=== PATIENT | female | born 2000 | race Caucasian/White ===

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

== ENCOUNTER 2019-07-07 00:53 | Inpatient (IN) | payer BC, OTHER ==
--- NOTE | 2019-07-07 01:22 | ED ---
Substance Abuse/Use - HPI Summary HPI Summary: This patient is a 19 year old F presenting to [facility] by EMS with a chief complaint of drug overdose since 0000 07/07/19. Symptoms aggravated by nothing. Symptoms alleviated by nothing. Patient reports she has been down for a while and overdosed on a prescription medication, 20 tabs of duloxetine, per triage, given at [facility]. Pt took pills alone around 0000 and reports to have been drinking slightly tonight. 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 Pt reports her friend from home who is in [place] called the EMS. - History Of Current Complaint Stated Complaint: OVERDOSE PER EMS Hx Obtained From: Patient Ingestion History: Type/Name Of Drug - duloxetine, Amount Ingested - 20 tabs Character: Depressed Aggravating Factor(s): Nothing Alleviating Factor(s): Nothing - Allergies/Home Medications Allergies/Adverse Reactions: Allergies Allergy/AdvReac Type Severity Reaction Status Date / Time No Known Allergies Allergy Verified 10/11/16 07:17 Home Medications: Home Medications DULoxetine DR CAP* [Cymbalta CAP*] 60 mg PO DAILY 07/07/19 [History Confirmed ] Iron 1 tab PO DAILY 07/07/19 [History Confirmed 07/07/19] Norethindrone-Ethinyl Estrad [Aranelle 28 Tablet] 1 tab PO DAILY 07/07/19 [ History Confirmed 07/07/19] PMH/Surg Hx/FS Hx/Imm Hx Endocrine/Hematology History: Denies: Hx Diabetes Cardiovascular History: Denies: Hx Hypertension - Surgical History Surgery Procedure, Year, and Place: none - Family History Known Family History: Positive: Diabetes - father - Social History Alcohol Use: None Hx Substance Use: No Substance Use Type: Reports: None Hx Tobacco Use: No Smoking Status (MU): Never Smoked Tobacco Review of Systems Negative: Fever Positive: Other - drug overdose All Other Systems Reviewed And Are Negative: Yes Physical Exam - Summary Physical Exam Summary: Appearance: Well-appearing, Well-nourished, lying in bed comfortably, Appears depressed and tearful Skin: Warm, dry, no obvious rash Eyes: sclera anicteric, no conjunctival pallor ENT: mucous membranes moist, pharynx appears normal Neck: Supple, nontender Respiratory: Clear to auscultation, no signs of respiratory distress Cardiovascular: Normal S1, S2. No murmurs. Normal distal pulses in tibial and radial bilaterally. Abdomen: Soft, nontender, normal active bowel sounds present Musculoskeletal: Normal, Strength/ROM Intact Neurological: awake and alert and answering questions appropriately Psychiatric: affect is normal, does not appear anxious or depressed Triage Information Reviewed: Yes Vital Signs Reviewed: Yes Procedures - Sedation Patient Received Moderate/Deep Sedation with Procedure: No Diagnostics - Laboratory Result Diagrams: 07/07/19 01:15 07/07/19 01:15 Lab Statement: Any lab studies that have been ordered have been reviewed, and results considered in the medical decision making process. - EKG 0108 Cardiac Rate: NL - 95 BPM Summary of EKG Findings: NSR at 95 BPM, P waves, QRS complex, and T waves are within normal limits, T waves and intervals are normal, no ischemic changes. This is a normal EKG. Course/Dx - Course Course Of Treatment: This patient is a 19 year old F presenting to [facility] by EMS with a chief complaint of drug overdose since 0000 07/07/19. Patient reports she has been down for a while and overdosed on a prescription medication, 20 tabs of duloxetine, per triage, given at [facility]. Pt took pills alone around 0000 and reports to have been drinking slightly tonight. Physical Exam Findings shows no abnormalities except Appears depressed and tearful, awake and alert and answering questions appropriately. Test results with no significant abnormalities expect for RBC 5.32 H, MCV 73 L, MCH 24 L, MPV 7.2 L, Serum Alcohol 77 H. Urinalysis shows no abnormalities except for Ur Specific [place] 1.005 L, Urine Blood 2+ A, Ur Squamous Epith Cells Present A. In the ED course the patient was given 50 gm Charcoal/Sorbitol and 8 mg Ondansetron Hcl. The patient is a sign-out from Dr. Nelson Finney MD, to Dr. Christopher Sommer MD, at change of shift at 0700 on 07/07/2019, pending mental health evaluation. - Diagnoses Provider Diagnoses: Depression Discharge ED - Sign-Out/Discharge Documenting (check all that apply): Patient Departure - discharge - Discharge Plan Condition: Stable Disposition: [facility]YCHIATRIC FACILITY[place] [place] - Billing Disposition and Condition Condition: STABLE Disposition: Psychiatric Facility [facility] [place] - Attestation Statements Document Initiated by Scribe: Yes Documenting Scribe: Pita Preciado Provider For Whom Scribe is Documenting (Include Credential): Dr. Nelson Finney MD Scribe Attestation: I, Pita Preciado, scribed for Dr. Nelson Finney MD on 07/15/19 at 0020. Scribe Documentation Reviewed: Yes Provider Attestation: The documentation as recorded by the abbeyePita accurately reflects the service I personally performed and the decisions made by me, Dr. Nelson Finney MD Status of Scribe Document: Viewed
[2019-07-07 01:33] LABS: ABS Eosinophils 0.3 10^3/ul (0-0.6); ABS Monocytes 0.5 10^3/ul (0-0.8); ABS Neutrophils 2.9 10^3/ul (1.5-7.7); Eosinophil % 4.5 %; Hematocrit 39 % (35-47); Hemoglobin 12.8 g/dL (12.0-16.0); Lymphocyte % 44.1 %; Mean Corpuscular HGB Conc 33 g/dL (31-36); Mean Corpuscular Hemoglobin 24 pg (27-31); Mean Corpuscular Volume 73 fL (80-97); Mean Platelet Volume 7.2 fL (7.4-10.4); Platelet Count 329 10^3/uL (150-450); Red Blood Count 5.32 10^6 /uL (3.70-4.87); Red Cell Distribution Width 13 % (10-15); White Blood Count 6.7 10^3/uL (3.5-10.8)
[2019-07-07] MEDS ORDERED: Charcoal 50 GM/Sorbitol* 50 GM/240 ML BTL PO ONE (01:34)
[2019-07-07 01:38] LABS: Urine Appearance Clear; Urine Bacteria Absent (Absent); Urine Bilirubin Negative (Negative); Urine Blood 2+ (Negative); Urine Color Straw; Urine Glucose Negative (Negative); Urine Ketones Negative (Negative); Urine Nitrite Negative (Negative); Urine Protein Negative (Negative); Urine Red Blood Cell Trace(0-2/hpf) (Absent); Urine Specific Gravity 1.005 (1.010-1.030); Urine Squamous Epithelial Cell Present (Absent); Urine Urobilinogen Negative (Negative); Urine White Blood Cell Absent (Absent)
[2019-07-07 01:42] LABS: ALT 28 U/L (7-52); AST 32 U/L (13-39); Albumin 4.3 g/dL (3.2-5.2); Albumin/Globulin Ratio 1.8 (1-3); Alkaline Phosphatase 58 U/L (34-104); Anion Gap 7 mmol/L (2-11); BUN/Creatinine Ratio 10.3 (8-20); Blood Urea Nitrogen 8 mg/dL (6-24); CO2 Carbon Dioxide 25 mmol/L (22-32); Calcium 8.8 mg/dL (8.6-10.3); Chloride 107 mmol/L (101-111); EGFR African American 112.8 (>60); EGFR Non-African American 93.2 (>60); Globulin 2.4 g/dL (2-4); Glucose 92 mg/dL (70-100); Potassium 3.5 mmol/L (3.5-5.0); Sodium 139 mmol/L (135-145); Total Protein 6.7 g/dL (6.4-8.9)
[2019-07-07 01:46] LABS: Urine Benzodiazepine Screen None Detected (None Detect); Urine Opiates Screen None Detected (None Detect)
[2019-07-07 01:49] LABS: HCG Pregnancy < 0.60 mIU/mL
[2019-07-07 02:07] LABS: Acetaminophen < 15 mcg/mL; Alcohol 77 mg/dL (<10); Salicylate < 2.50 mg/dL (<30)
[2019-07-07 02:22] LABS: TSH (Thyroid Stimulating Horm) 5.45 mcIU/mL (0.34-5.60)
[2019-07-07] MEDS ORDERED: Ondansetron ODT TAB* 4 MG SL ONE (06:23)
[2019-07-07] MEDS ORDERED: Ondansetron INJ* 2 MG/ML VIAL IV ONE (06:23)
--- NOTE | 2019-07-07 07:16 | ED ---
Progress - Progress Note Progress Note: The patient is a sign-out from Dr. Nelson Finney MD, to Dr. Christopher Sommer MD, at change of shift at 0700 on 07/07/2019, pending mental health evaluation and disposition. 0820 - Ines Matt, mental health yard cleaner, reports Dr. Adair, psychiatry, has evaluated the patient and believes involuntary admission is appropriate, dx of depression Course/Dx - Course Course Of Treatment: The patient is a sign-out from Dr. Nelson Finney MD, to Dr. Christopher Sommer MD, at change of shift at 0700 on 07/07/2019, pending mental health evaluation and disposition. Mental health evaluation performed by Ines Matt; she reports Dr. Adair, psychiatry, has evaluated the patient and believes involuntary admission is appropriate for the patient, with diagnosis of depression. - Diagnoses Provider Diagnoses: Depression - Provider Notifications Discussed Care Of Patient With: Ines Matt - mental health yard cleaner Time Discussed With Above Provider: 08:20 Instructed by Provider To: Other - Ines reports Dr. Adair, psychiatry, has evaluated the patient and believes involuntary admission is appropriate, dx of depression Discharge ED - Sign-Out/Discharge Documenting (check all that apply): Patient Departure - Patient accepted for involuntary admission., Receiving Sign-Out Receiving patient FROM: Nelson Finney - Patient is a sign-out from Dr. Nelson Finney MD, at 0700 on 07/07/2019, pending MHE and disposition. - Discharge Plan Condition: Stable Disposition: PSYCHIATRIC FACILITY-[facility] [place] - Billing Disposition and Condition Condition: STABLE Disposition: Psychiatric Facility [facility] [place] - Attestation Statements Document Initiated by Scribe: Yes Documenting Scribe: Shameka Ernandez Provider For Whom Mauricio is Documenting (Include Credential): Dr. Christopher Sommer MD Scribe Attestation: Shameka Gagnon scribed for Dr. Christopher Sommer MD on 07/07/19 at 0901. Scribe Documentation Reviewed: Yes Provider Attestation: The documentation as recorded by the Shameka la accurately reflects the service I personally performed and the decisions made by me, Dr. Christopher Sommer MD Status of Scribe Document: Viewed Procedures - Sedation Patient Received Moderate/Deep Sedation with Procedure: No
[2019-07-07] MEDS ORDERED: Acetaminophen TAB* 325 MG PO PRN (09:06)
[2019-07-07] MEDS ORDERED: Al Hydrox/Mg Hydrox/Simet LIQ* 30 ML UDC PO PRN (09:06)
[2019-07-07] MEDS: Vitamin THERAPEUTIC TAB PO SCH (09:31)
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
[2019-07-07] MEDS: ARANELLE PO SCH (22:32)
[2019-07-08] MEDS ORDERED: Influenza VAC *QUAD* 2019-20* 0.5 ML SYRINGE IM ONE (09:00)
[2019-07-08] MEDS: ARANELLE PO SCH ×2 (09:36→10:29)
[2019-07-08] MEDS: Vitamin THERAPEUTIC TAB PO SCH (10:29)
--- NOTE | 2019-07-08 10:53 | PN ---
Subjective - Subjective Date of Service: 07/08/19 Service Type: [id number] Hosp care 35 min high complexity Subjective: Nursing Report: Patient was visible on unit, no behavioral incidents. Slept overnight. Attending group activities. CC: "I overdosed on pills Patient was seen and evaluated today in the common room. The patient inquired if natural remedies will help her instead of medication. She reported having persistent suicidal thoughts outside of her most recent stressor of talking with her ex-boyfriend. She described having a hypomanic episode last spring. The patient reports attending and participating in day groups. Per nursing no behavioral issues or overnight events reported. Patient is convinced that she will never be loved and that once someone gets to know her they will hate her the same way her ex- boyfriend told her. Objective - General Observations Appearance: Disheveled Appears Stated Age: Yes Stature: WNL Posture: Slumped Eye Contact: Avoidant Behavior/Activity: Slowed - Interaction Observations Attitude Towards Examiner: Cooperative Stated Mood: Dysphoric Affect: Blunted Speech Pattern/Tone: Quiet Volume Thought Process: Impoverished Perception: WNL Thought Content: Depressive Thought Process: Lethality: Passive Wish Hallucination Type: None Delusion Type: None - Cognitive Function Orientation: A&O x 4 Level of Consciousness: Awake - Medication Compliance Cooperative with Inpatient Medication Regimen: Yes - Group Participation Participates in Group Activities: Partial Assessment - Assessment Merits Inpatient Hospitalization: For Immediate Safety Clinical Impression: 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 Plan - Plan Treatment Plan: Name: MARISSA JIANG Birthdate: 2000 [id number] #Q30 minute observation with staff pass. # The patient requires psychiatric inpatient admission at this time to assure safety, receive treatment and work toward stabilization. # EKG ordered for risk of QT prolongation of antipsychotic medication. Combination of lexapro and abilify may increase QTc, this risk was discussed with the patient and is in agreement with starting treatment. # B-HCG was ordered and results are negative. # Obtain collateral information once release is signed. # Collaboration with Social Work #Goals before discharge include: To eliminate/ reduce suicidal ideation Tentative Discharge: Pending psychiatric stabilization The risks, benefits, and alternative treatment options were discussed as well as the risks of refusing treatment. After this discussion and an acknowledgement of this understanding was made. A risk/ benefit assessment of treatment was considered and discussed with the patient. When comparing the risks of treatment with the dangers of not receiving treatment, the benefits of treatment outweigh the treatment risks at this time. Risks of allergy, suicidal ideation, behavioral changes, dystonia, rashes, electrolyte imbalances, movement disorders, cardiac conduction changes, serotonin syndrome, metabolic risks and NMS were among some of the risks discussed. Continued Medication Management: Continue Outpt Medication Medications: Current Medications Acetaminophen (Tylenol Tab*) 650 mg PO Q4H PRN PRN Reason: PAIN or TEMP > 101 F Al Hydrox/Mg Hydrox/Simethicone (Maalox Plus*) 30 ml PO Q4H PRN PRN Reason: INDIGESTION Aripiprazole (Abilify Tab*) 2 mg PO DAILY [facility] Escitalopram Oxalate (Lexapro *) 10 mg PO DAILY [facility] Multivitamins (Theragran Tab*) 1 tab PO DAILY [facility] Last Admin: 07/08/19 10:29 Dose: 1 tab Pto:Aranelle 1 dose PO QAM [facility] Last Admin: 07/08/19 10:29 Dose: 1 dose - Discharge Plan Discharge Plan: Inpatient Hospitalization Outpatient Program: Private Clinician(s)
[2019-07-08] MEDS: Escitalopram * 10 MG TAB PO SCH (12:20)
[2019-07-08] MEDS: ARIPiprazole TAB* 2 MG PO SCH (12:20)
--- NOTE | 2019-07-09 11:05 | PN ---
Subjective - Subjective Date of Service: 07/09/19 Service Type: [id number] Hosp care 35 min high complexity Subjective: Nursing Report: Patient was visible on unit, no behavioral incidents. Slept overnight. Attending group activities. CC: "Fine Patient was seen and evaluated today in the common room. The patient reported she plans to write out reason why and why not someone would hate her after to getting to know her. She wants to focus on herself for now and not worry about relationships. Patient reported that she is tolerating medications without side effects. Objective - General Observations Appearance: Disheveled Appears Stated Age: Yes Stature: WNL Posture: WNL Eye Contact: Average Behavior/Activity: WNL - Interaction Observations Attitude Towards Examiner: Cooperative Stated Mood: Dysphoric Affect: Blunted Speech Pattern/Tone: Normal Volume Thought Process: Coherent Perception: WNL Thought Content: Depressive Thought Process: Lethality: Passive Wish Hallucination Type: None Delusion Type: None - Cognitive Function Orientation: A&O x 4 Level of Consciousness: Awake - Medication Compliance Cooperative with Inpatient Medication Regimen: Yes - Group Participation Participates in Group Activities: Yes Assessment - Assessment Merits Inpatient Hospitalization: For Immediate Safety Clinical Impression: 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 Plan - Plan Treatment Plan: Name: MARISSA JIANG Birthdate: 2000 [id number] #Q30 minute observation with staff pass and computer access # The patient requires psychiatric inpatient admission at this time to assure safety, receive treatment and work toward stabilization. # EKG ordered for risk of QT prolongation of antipsychotic medication. Combination of lexapro and abilify may increase QTc, this risk was discussed with the patient and is in agreement with starting treatment. # Most recent QTc 430. # B-HCG was ordered and results are negative. # Obtain collateral information once release is signed. # Collaboration with Social Work # MMPI results show increased distress scale and low self esteem # Patient would benefit from CBT # Contact was made with Dr. Mota and treatment plan discussed. #Goals before discharge include: To eliminate/ reduce suicidal ideation Tentative Discharge: Pending psychiatric stabilization The risks, benefits, and alternative treatment options were discussed as well as the risks of refusing treatment. After this discussion and an acknowledgement of this understanding was made. A risk/ benefit assessment of treatment was considered and discussed with the patient. When comparing the risks of treatment with the dangers of not receiving treatment, the benefits of treatment outweigh the treatment risks at this time. Risks of allergy, suicidal ideation, behavioral changes, dystonia, rashes, electrolyte imbalances, movement disorders, cardiac conduction changes, serotonin syndrome, metabolic risks and NMS were among some of the risks discussed. Continued Medication Management: Continue Outpt Medication Medications: Current Medications Acetaminophen (Tylenol Tab*) 650 mg PO Q4H PRN PRN Reason: PAIN or TEMP > 101 F Al Hydrox/Mg Hydrox/Simethicone (Maalox Plus*) 30 ml PO Q4H PRN PRN Reason: INDIGESTION Aripiprazole (Abilify Tab*) 2 mg PO DAILY [facility] Last Admin: 07/08/19 12:20 Dose: 2 mg Escitalopram Oxalate (Lexapro *) 10 mg PO DAILY [facility] Last Admin: 07/08/19 12:20 Dose: 10 mg Multivitamins (Theragran Tab*) 1 tab PO DAILY [facility] Last Admin: 07/08/19 10:29 Dose: 1 tab Pto:Aranelle 1 dose PO QAM [facility] Last Admin: 07/08/19 10:29 Dose: 1 dose - Discharge Plan Discharge Plan: Inpatient Hospitalization Outpatient Program: [facility]
[2019-07-09] MEDS: Escitalopram * 10 MG TAB PO SCH ×2 (11:56→20:43)
[2019-07-09] MEDS: ARANELLE PO SCH ×2 (11:56→21:44)
[2019-07-09] MEDS: ARIPiprazole TAB* 2 MG PO SCH ×2 (11:56→20:46)
[2019-07-09] MEDS: Vitamin THERAPEUTIC TAB PO SCH (11:56)
--- NOTE | 2019-07-10 08:55 | PN ---
Subjective - Subjective Date of Service: 07/10/19 Service Type: [id number] Hosp care 35 min high complexity Subjective: Nursing Report: Patient was visible on unit, no behavioral incidents. Slept overnight. CC: "Fine" Patient was seen and evaluated in the common room. The patient reported feeling safe on the unit and is interacting with peers. She reported having adequate appetite and sleep. The patient reports attending and participating in day groups. Per nursing no behavioral issues or overnight events reported. Patient reported that she is tolerating medications without side effects. She identified 3 things that have changed since discharge which were knowing and identifying her support network, no longer suicidal and feels better about herself . Objective - General Observations Appearance: Neat Appears Stated Age: Yes Stature: WNL Posture: WNL Eye Contact: Average Behavior/Activity: WNL - Interaction Observations Attitude Towards Examiner: Cooperative Stated Mood: Dysphoric Affect: Blunted Speech Pattern/Tone: Clear Thought Process: Coherent Perception: WNL Thought Content: WNL Hallucination Type: None Delusion Type: None - Cognitive Function Orientation: A&O x 4 Level of Consciousness: Awake Cognition: WNL - Medication Compliance Cooperative with Inpatient Medication Regimen: Yes - Group Participation Participates in Group Activities: Yes Assessment - Assessment Merits Inpatient Hospitalization: For Immediate Safety Clinical Impression: 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 Plan - Plan Treatment Plan: Name: MARISSA JIANG Birthdate: 2000 [id number] #Q30 minute observation with staff pass and computer access # The patient requires psychiatric inpatient admission at this time to assure safety, receive treatment and work toward stabilization. # EKG ordered for risk of QT prolongation of antipsychotic medication. Combination of lexapro and abilify may increase QTc, this risk was discussed with the patient and is in agreement with starting treatment. # Most recent QTc 430. # B-HCG was ordered and results are negative. # Obtain collateral information once release is signed. # Collaboration with Social Work # MMPI results show increased distress scale and low self esteem # Appointment with Dr. Mota Monday at 430pm # Continue lexapro 10mg and abilify 2mg qhs. #Goals before discharge include: To eliminate/ reduce suicidal ideation Tentative Discharge: Thursday 12pm Sodium 139 mmol/L (135-145) 07/07/19 01:15 Potassium 3.5 mmol/L (3.5-5.0) 07/07/19 01:15 BUN 8 mg/dL (6-24) 07/07/19 01:15 Creatinine 0.78 mg/dL (0.51-0.95) 07/07/19 01:15 Calcium 8.8 mg/dL (8.6-10.3) 07/07/19 01:15 AST 32 U/L (13-39) 07/07/19 01:15 ALT 28 U/L (7-52) 07/07/19 01:15 Continued Medication Management: Continue Outpt Medication Medications: Current Medications Acetaminophen (Tylenol Tab*) 650 mg PO Q4H PRN PRN Reason: PAIN or TEMP > 101 F Al Hydrox/Mg Hydrox/Simethicone (Maalox Plus*) 30 ml PO Q4H PRN PRN Reason: INDIGESTION Aripiprazole (Abilify Tab*) 2 mg PO DAILY [facility] Last Admin: 07/09/19 20:46 Dose: 2 mg Escitalopram Oxalate (Lexapro *) 10 mg PO 2100 [facility] Last Admin: 07/09/19 20:43 Dose: 10 mg Multivitamins (Theragran Tab*) 1 tab PO DAILY [facility] Last Admin: 07/09/19 11:56 Dose: Not Given Pto:Aranelle 1 dose PO QPM [facility] Last Admin: 07/09/19 21:44 Dose: 1 dose - Discharge Plan Discharge Plan: Inpatient Hospitalization Outpatient Program: [facility]
[2019-07-10] MEDS: ARIPiprazole TAB* 2 MG PO SCH (09:34)
[2019-07-10] MEDS: Vitamin THERAPEUTIC TAB PO SCH (09:35)
[2019-07-10] MEDS ORDERED: Ondansetron TAB* 4 MG PO ONE (15:09)
[2019-07-10] MEDS: ARANELLE PO SCH (20:43)
[2019-07-10] MEDS: Escitalopram * 10 MG TAB PO SCH (20:43)
[2019-07-10] MEDS ORDERED: ARIPiprazole TAB* 2 MG PO SCH (21:00)
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
[2019-07-11 08:50] LABS: HDL Cholesterol 57.5 mg/dL
[2019-07-11 09:19] VITALS: BP 118/68
[2019-07-11] MEDS: Vitamin THERAPEUTIC TAB PO SCH (10:50)
== END 2019-07-11 11:50 | disposition home or self-care (01) | DRG 751 ==
LOC: ED 00:53 → BSU 08:45
PROVIDERS: ADMIT Psychiatry & Neurology Psychiatry; ATTEND Psychiatry & Neurology Psychiatry
DX: F33.2 Major depressive disorder, recurrent severe without psychotic features (principal); T43.212A Poisoning by selective serotonin and norepinephrine reuptake inhibitors, intentional self-harm, initial encounter; G89.29 Other chronic pain; F41.9 Anxiety disorder, unspecified; F12.90 Cannabis use, unspecified, uncomplicated; F34.1 Dysthymic disorder; M54.9 Dorsalgia, unspecified; Z83.3 Family history of diabetes mellitus; Z23 Encounter for immunization; Y92.009 Unspecified place in unspecified non-institutional (private) residence as the place of occurrence of the external cause; Z72.89 Other problems related to lifestyle
CPT/HCPCS: 36415; 80053; 80061; 80307; 80320; 80329; 81003; 81015; 83036; 83605; 84443; 84702; 85025; 90686; 93005; 96374; 99222; 99233; 99238; 99284; A9270-GY; G0480